=== PATIENT | female | born 2000 | race Caucasian/White ===

== ENCOUNTER 2022-07-16 01:31 | Emergency (ER) | payer OTHER, SELFPAY ==
[2022-07-16 01:32] VITALS: BP 133/79; PULSE 105; RESP 16; TEMP 36.9; O2SAT 100; BMI 21.0
[2022-07-16 02:22] VITALS: BP 116/83; BP 120/79; BP 125/72; PULSE 101; PULSE 132; PULSE 95
[2022-07-16 02:25] LABS: Absolute Lymphocyte Count 1.66 X10^3/uL (0.83-4.51); Absolute Neutrophil Count 8.2 X10^3/uL (2.0-7.7); Basophil# 0.05 X10^3/uL; Basophil% 0.5 % (0-1); Eosinophil# 0.15 X10^3/uL; Eosinophils% 1.4 % (0-5); Hematocrit 34.3 % (37-47); Hemoglobin 11.4 g/dL (12.0-15.0); Lymphocyte # 1.66 X10^3/ul (0.83-4.51); Lymphocyte % 15.3 % (19-41); Mean Corp Hgb Conc 33.2 g/dL (32-36); Mean Corpuscular Volume 93.2 fL (81-99); Mean Platelet Vol. 9.5 fl (6.2-12.0); Monocyte# 0.71 X10^3/uL; Monocyte% 6.5 % (0-10); NRBC Flagged by Analyzer 0 % (0-5); Neutrophil # 8.23 X10^3/uL (2.7-7.7); Neutrophil % 75.7 % (47-70); Platelet Count 389 K/mm3 (150-450); RBC Distribution Width CV 13.3 % (11.6-14.6); RBC Distribution Width SD 45.4 fl (35.1-43.9); Red Blood Count 3.68 M/mm3 (4.2-5.4); White Blood Count 10.9 K/mm3 (4.4-11.0)
[2022-07-16 02:34] LABS: Internal QC Validated? YES +Cl - CLEAR BKGD; Pregnancy, Serum, hCG Quali. NEGATIVE Negative
[2022-07-16 02:40] LABS: Anion Gap 8 (5-15); BUN 8 mg/dL (7-18); BUN/Creat Ratio 10.9 RATIO (10-20); Chloride 105 mmol/L (98-107); Creatinine, Serum 0.73 mg/dL (0.55-1.02); EST Glomerular Filtration Rate 106 mL/min (>60); Est Glom Filt Rate - Afr Amer 128 mL/min (>60); Estimated Creatinine Clearance 109.69 ml/min; Glucose 113 mg/dL (74-106); Potassium 3.7 mmol/L (3.5-5.1); Sodium Level 140 mmol/L (136-145)
[2022-07-16] MEDS: 0.9% Normal Saline 1,000 ML 999 ML IV (02:51)
--- NOTE | 2022-07-16 03:37 | EDS_ITS ---
HPI HPI - Female History of Present Illness Chief Complaint: Vag Bleeding Narrative Narrative: Patient is a 21-year-old female with no significant past medical history. She states that she started her menstrual cycle in the last 1 to 2 days as she normally does. However this time she is having excessive amounts of bleeding. She denies any recent trauma or concern for . She denies any bleeding disorder or blood thinner use. She states she is not on hormones. She reports that today she would began feeling lightheaded/dizzy when she was standing and with this symptom along with her increased vaginal bleeding comes in for evaluation. PFSH PFSH Medical History no medical history no medical history Home Medications No Known/Unobtainable [No Known Home Medications] 08/12/17 [History Last Taken Unknown] Allergy/AdvReac Type Severity Reaction Status Date / Time No Known Allergies Allergy Verified 08/12/17 11:02 Social History Smoking Status: Never smoker [facility] ED Constitutional Constitutional ED: Denies chills or fever(s) Eyes Eyes: Denies change in vision ENT ENT ED: Denies sore throat Cardiovascular Cardiovascular: Denies chest pain Respiratory/Chest Respiratory/Chest: Denies cough or dyspnea Gastrointestinal Gastrointestinal: Denies abdominal pain, diarrhea, nausea or vomiting Genitourinary Genitourinary ED: Reports other Details: Positive vaginal bleeding ; Denies dysuria Musculoskeletal Musculoskeletal: Denies myalgias Integumentary Denies rash Neurologic Neurologic: Reports other Details: Positive dizziness ; Denies headache(s) Hematologic/Lymphatic Hematologic/Lymphatic: Denies easy bleeding or easy bruising EXAM Physical Exam Const Vital Signs: 07/16/22 01:32 07/16/22 02:22 Temperature 98.5 F Temperature Source Oral Pulse Rate 105 H Pulse Rate [Lying] 101 H Pulse Rate [Sitting (for 1 minute prior to obtaining)] 95 Pulse Rate [Standing (for 1 minute prior to obtaining)] 132 H Respiratory Rate 16 Blood Pressure 133/79 H Blood Pressure [Lying] 125/72 H Blood Pressure [Sitting (for 1 minute prior to obtaining)] 120/79 Blood Pressure [Standing (for 1 minute prior to obtaining)] 116/83 H Blood Pressure Mean 97 Blood Pressure Mean [Lying] 89 Blood Pressure Mean [Sitting (for 1 minute prior to obtaining)] 92 Blood Pressure Mean [Standing (for 1 minute prior to obtaining)] 94 Pulse Ox 100 Oxygen Delivery Method Room Air Positive well nourished and well developed General Appearance ED: well developed HEENT Reports moist mucous membranes Eyes PERRL and EOMs intact bilaterally General Eye ED: Negative for pale conjunctiva Neck supple Resp normal respiratory effort and clear to auscultation bilaterally Cardio regular rate and regular rhythm GI normal to inspection, nondistended, normoactive bowel sounds, soft to palpation, non-tender, non-distended and no masses Auscultation: normoactive bowel sounds Palpation: soft Narrative: Patient deferred Extremity normal to inspection Neuro oriented x3, CN's II-XII intact bilaterally and no sensory deficits noted Sensorium / Orientation: alert Psych mental status grossly normal Skin no rashes or lesions noted MDM MDM MDM Narrative Medical decision making narrative: Patient presented to the ER with a stable blood pressure but is slightly tachycardic. With her symptoms of dizziness/lightheadedness and report of heavier vaginal bleeding there is concern that she could require possible blood transfusion or could be even having an ectopic causing increased bleeding. Therefore basic blood work was obtained. Labs showed stable H&H with normal platelet value and no signs of . Orthostatic vital signs were positive as her heart rate jumped over 20 beats from sitting to standing. Secondary to this she was given 1 L fluid. On reevaluation she reported feeling better and at this time as she does not require blood transfusion and has had stabilization of her symptoms with fluids she is otherwise safe for discharge. Lab Data Attestation: I reviewed the patient's lab results. Labs: Laboratory Results - last 24 hr 07/16/22 07/16/22 07/16/22 02:20 02:20 02:20 WBC 10.9 RBC 3.68 L Hgb 11.4 L Hct 34.3 L MCV 93.2 MCH 31.0 MCHC 33.2 RDW Std Deviation 45.4 H RDW Coeff of Hugh 13.3 Plt Count 389 MPV 9.5 Immature Gran % (Auto) 0.600 Neut % (Auto) 75.7 H Lymph % (Auto) 15.3 L Sherman % (Auto) 6.5 Eos % (Auto) 1.4 Baso % (Auto) 0.5 Absolute Neuts (auto) 8.2 H Absolute Lymphs (auto) 1.66 Nucleated RBC % 0 Sodium 140 Potassium 3.7 Chloride 105 Carbon Dioxide 27.0 Anion Gap 8 BUN 8 Creatinine 0.73 Estim Creat Clear Calc 109.69 Est GFR (MDRD) Af Amer 128 Est GFR (MDRD) Non-Af 106 BUN/Creatinine Ratio 10.9 Glucose 113 H Calcium 9.0 Serum , Qual NEGATIVE Discharge Plan Triage Chief Complaint: Vag Bleeding ED Provider: [place] Dx/Rx/DC Orders Clinical Impression: DUB (dysfunctional uterine bleeding), Orthostatic dizziness Instructions: ED Dysfunctional Uterine Bleeding Prescriptions: No Action No Known Home Medications Primary Care Provider: Klaudia Bartlett Referrals: Kelle Moore CNM [Med Staff - Adv Practice Prof] - 1 Week if not improving Klaudia Bartlett MD [Primary Care Provider] - Disposition Disposition: Home, Self Care
[2022-07-16 04:12] VITALS: BP 119/74; PULSE 84; RESP 18; O2SAT 99
== END 2022-07-16 04:13 | disposition home or self-care (01) ==
PROVIDERS: Emergency Provider Emergency Medicine; PCP Pediatrics; Visit Provider Emergency Medicine
DX: N93.8 Other specified abnormal uterine and vaginal bleeding (principal); R42 Dizziness and giddiness
CPT/HCPCS: 80048; 84703; 85025; 99283; J7030; A4216